=== PATIENT | female | born 1990 | race Caucasian/White ===

== ENCOUNTER 2016-09-13 16:12 | Inpatient (IN) | payer MEDICAID ==
[~2016-09-13] VITALS: Ht 154.9 cm; Wt 52.9 kg
[2016-09-13] MEDS ORDERED: DiphenhydrAMINE HCL 50 MG/ML VIAL ONE (17:28)
[2016-09-13] MEDS ORDERED: LORazepam 2 MG/ML VIAL ONE (17:28)
[2016-09-13] MEDS ORDERED: HALOPERIDOL LACTATE 5 MG/ML VIAL ONE (17:28)
[2016-09-13] MEDS ORDERED: LORazepam 2 MG/ML VIAL IM ONE (17:30)
[2016-09-13] MEDS ORDERED: DiphenhydrAMINE HCL 50 MG/ML VIAL IM ONE (17:30)
[2016-09-13] MEDS ORDERED: HALOPERIDOL LACTATE 5 MG/ML VIAL IM ONE (17:30)
[2016-09-13 18:19] LABS: BASOPHILS % (AUTO) 1.2 % (0.0-2.0); EOSINOPHILS % (AUTO) 8.1 % (1.0-6.0); HEMATOCRIT 38.6 % (36-46); HEMOGLOBIN 12.7 g/dL (12.0-16.0); MEAN CORPUSCULAR HEMOGLOBIN 29.7 pg (26.0-34.0); MEAN CORPUSCULAR VOLUME 90 fL (80-100); MONOCYTES # (AUTO) 0.6 K/uL (0.1-1.0); MONOCYTES % (AUTO) 6.9 % (2.0-9.0); NEUTROPHILS # (AUTO) 5.6 K/uL (1.8-7.7); NEUTROPHILS % (AUTO) 61.8 % (40.0-70.0); PLATELET COUNT (AUTO) 378 K/uL (150-450); RED BLOOD CELL COUNT(AUTO) 4.28 MIL/uL (4.00-5.20); WHITE BLOOD COUNT (AUTO) 9.1 K/uL (4.5-11.0)
[2016-09-13 18:45] LABS: ANION GAP 11 mmol/L (8-16); CARBON DIOXIDE 25 mmol/L (22-29); CHLORIDE 105 mmol/L (98-107); CREATININE 0.92 mg/dL (0.60-1.30); GLOMERULAR FILTR. RATE CALC 53 mL/min (>60); POTASSIUM 3.8 mmol/L (3.5-5.1); SODIUM SERUM 141 mmol/L (136-145); UREA NITROGEN, BLOOD 13 mg/dL (7-18)
[2016-09-13] MEDS ORDERED: LORazepam 2 MG TABLET PO PRN (18:45)
[2016-09-13] MEDS ORDERED: HALOPERIDOL 5 MG TABLET PO PRN (18:45)
[2016-09-13 18:55] LABS: ALANINE AMINOTRANSFERASE 24 U/L (12-78); ALBUMIN 4.2 g/dL (3.4-5.0); ASPARTATE AMINOTRANSFERASE 21 U/L (15-37); BILIRUBIN,TOTAL 0.9 mg/dL (0.1-1.0); TOTAL PROTEIN, SERUM 7.5 g/dL (6.4-8.2)
[2016-09-13] MEDS ORDERED: INFLUENZA VIRUS VACCINE QVS 2016-17 (3YR+)/PF 60 MCG/0.5 ML SYRINGE IM ONE (19:45)
[2016-09-13] MEDS ORDERED: PNEUMOCOCCAL VACCINE POLYVALENT 0.5 ML VIAL [PPSV23] IM ONE (19:45)
[2016-09-13 19:51] VITALS: BP 103/58
[2016-09-14] MEDS ORDERED: ALBUTEROL SULFATE HFA 90 MCG/PUFF 8 GM INHALER IH PRN (09:30)
[2016-09-14] MEDS ORDERED: BACITRACIN 28.4 GM OINTMENT TP PRN (09:30)
[2016-09-14] MEDS ORDERED: MAG HYDROX/AL HYDROX/SIMETH ES 30 ML SUSPENSION UDCUP PO PRN (09:30)
[2016-09-14] MEDS ORDERED: BENZOCAINE/MENTHOL LOZENGE MM PRN (09:30)
[2016-09-14] MEDS ORDERED: CloNIDine HCL 0.1 MG TABLET PO PRN (09:30)
[2016-09-14] MEDS ORDERED: MAGNESIUM HYDROXIDE SUSPENSION 30 ML UDCUP PO PRN (09:30)
[2016-09-14] MEDS ORDERED: ACETAMINOPHEN 325 MG TABLET PO PRN (09:30)
[2016-09-14] MEDS ORDERED: PETROLATUM,WHITE 71 GM JELLY TP PRN (09:30)
[2016-09-14] MEDS ORDERED: LOPERAMIDE HCL 2 MG CAPSULE PO PRN (09:30)
[2016-09-14] MEDS ORDERED: ONDANSETRON HCL 4 MG TABLET PO PRN (09:30)
[2016-09-14] MEDS ORDERED: IBUPROFEN 600 MG TABLET PO PRN (09:30)
[2016-09-14 16:25] VITALS: BP 111/66
[2016-09-15 08:51] VITALS: BP 118/69
[2016-09-15 16:15] VITALS: BP 109/72
[2016-09-15] MEDS: RisperiDONE 0.5 MG TABLET PO SCH (16:37)
[2016-09-16 08:22] VITALS: BP 100/51
[2016-09-16] MEDS: RisperiDONE 0.5 MG TABLET PO SCH ×2 (08:38→16:13)
[2016-09-16 16:25] VITALS: BP 123/77
[2016-09-17] VITALS: BP 127/72
[2016-09-17] MEDS: ZOLPIDEM TARTRATE 10 MG TABLET PO PRN ×2 (02:57→20:52)
[2016-09-17 08:23] VITALS: BP 102/68
[2016-09-17] MEDS: RisperiDONE 0.5 MG TABLET PO SCH ×2 (08:30→16:26)
[2016-09-17 16:12] VITALS: BP 114/69
[2016-09-18 07:03] VITALS: BP 112/94
[2016-09-18 08:07] VITALS: BP 108/68
[2016-09-18] MEDS: RisperiDONE 0.5 MG TABLET PO SCH (08:08)
[2016-09-18] MEDS ORDERED: RISP.5 PO (11:07)
== END 2016-09-18 11:50 | disposition home or self-care (01) | DRG 751 ==
LOC: EMS 16:24 → EDBD 18:51 → B3A 18:51
PROVIDERS: ADMIT Psychiatry & Neurology Psychiatry; ATTEND Psychiatry & Neurology Psychiatry
PROC: 3E0234Z Introduction of Serum, Toxoid and Vaccine into Muscle, Percutaneous Approach (ICD-10-PCS; principal; 2016-09-14)
DX: F29 Unspecified psychosis not due to a substance or known physiological condition (principal); R45.851 Suicidal ideations; Z78.1 Physical restraint status; F41.9 Anxiety disorder, unspecified; G47.00 Insomnia, unspecified; Z23 Encounter for immunization
CPT/HCPCS: 90471; 96372; 99285; A0429; G0480; J1200; J1630; J2060; Q0162